=== PATIENT | male | born 1985 | race African-American/Black ===

== ENCOUNTER 2017-06-14 06:13 | Emergency (ER) | payer BC, OTHER ==
[2017-06-14 06:59] LABS: #Eosinphils 0.1 thou/uL (0.0-0.7); #Monocytes 0.6 thou/uL (0.11-0.59); #Neutrophils 4.1 thou/uL (1.40-6.50); %Basophils 0.7 % (0.0-1.0); %Eosinophils 2.2 % (0.0-10.0); %Lymphocytes 28.9 % (21.0-51.0); %Monocytes 8.2 % (0.0-10.0); %Neutrophils 59.9 % (42.0-75.0); Hemoglobin 14.7 g/dL (14.0-18.0); Mean Corpuscular HGB CONC 32.8 g/dL (32.0-36.0); Mean Corpuscular Volume 85.2 fl (80.0-94.0); Mean Platelet Volume 8.5 fL (7.4-10.4); Platelet Count 262 thou/uL (130-400); RBC Distribution Width 11.8 % (11.5-14.5); Red Blood Cell (RBC) Count 5.27 mill/uL (4.70-6.10); White Blood Cell (WBC) Count 6.8 thou/uL (4.8-10.8)
[2017-06-14] MEDS ORDERED: Ondansetron HCl/PF 4 MG/2 ML Vial ONE (07:01)
[2017-06-14 07:20] LABS: Anion Gap 11 mmol/L (10-20); BUN (Urea Nitrogen) 13 mg/dL (8.9-20.6); Calc. Creatinine Clearance 0 mL/min (70-130); Calcium 9.9 mg/dL (7.8-10.44); Carbon Dioxide 29 mmol/L (22-29); Chloride 103 mmol/L (98-107); Estimated GFR-MDRD Greater than 90; Glucose 116 mg/dL (70-105); Potassium 4.4 mmol/L (3.5-5.1); Sodium 139 mmol/L (136-145)
== END 2017-06-14 07:40 | disposition home or self-care (01) ==
LOC: ERS 06:13
DX: R11.2 Nausea with vomiting, unspecified (principal)
CPT/HCPCS: 80048; 85025; 96361; 96374; J2405

== ENCOUNTER 2018-09-09 14:31 | Outpatient (CLI) | payer BC ==
--- NOTE | 2018-09-09 15:31 | ULT ---
TESTICULAR ULTRASOUND WITH GRAYSCALE COLOR-FLOW AND SPECTRAL DOPPLER IMAGING: HISTORY: Abnormal semen, infertility FINDINGS: The right testis measures 4 x 1.7 x 3.2 cm in the left testis measures 3.5 x 2.1 x 2.4 cm. No testicu lar mass or microlithiasis is seen on either side. Symmetric flow is demonstrated to both testes and epididymides. The right epididymis is normal. There is a 3 mm cyst in the left epididymal head. IMPRESSION: 1. No evidence of testicular masses or torsion. 2. Small left epididymal head cyst/spermatocele.
== END 2018-09-09 14:32 | disposition home or self-care (01) ==
LOC: BICULT 14:31
PROVIDERS: ATTEND Urology
DX: N46.9 Male infertility, unspecified (principal); R86.9 Unspecified abnormal finding in specimens from male genital organs
CPT/HCPCS: 76870; 93976

== ENCOUNTER 2018-11-02 17:32 | Emergency (ER) | payer BC ==
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
[2018-11-02] MEDS ORDERED: Ketorolac Tromethamine 30 MG/ML VIAL ONE (18:45)
== END 2018-11-02 19:03 | disposition home or self-care (01) ==
LOC: ERS 17:32
DX: M25.472 Effusion, left ankle (principal); X50.1XXA Overexertion from prolonged static or awkward postures, initial encounter
CPT/HCPCS: 29515; 96372; J1885

== ENCOUNTER 2018-12-03 01:41 | Emergency (ER) | payer BC ==
[2018-12-03] MEDS ORDERED: Adacel (T-DAP) 0.5 ML SYRINGE ONE (01:53)
[2018-12-03] MEDS ORDERED: Morphine 4 MG/ML VIAL ONE (01:53)
[2018-12-03] MEDS ORDERED: Ondansetron PF 4 MG/2 ML Vial ONE (01:53)
[2018-12-03] MEDS ORDERED: Lidocaine 1% (PF) 30 ML VIAL ONE (02:45)
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
[2018-12-03] MEDS ORDERED: ISOVUE-370 76%-LOCM 1 ML ONE (16:41)
== END 2018-12-03 04:30 | disposition home or self-care (01) ==
LOC: ERS 01:41
DX: S11.91XA Laceration without foreign body of unspecified part of neck, initial encounter (principal); S51.811A Laceration without foreign body of right forearm, initial encounter; S61.511A Laceration without foreign body of right wrist, initial encounter; Z23 Encounter for immunization; V86.99XA Unspecified occupant of other special all-terrain or other off-road motor vehicle injured in nontraffic accident, initial encounter
CPT/HCPCS: 12005; 70498; 90471; 90715; 96374; 96375; J2001; J2270; J2405; Q9966

== ENCOUNTER 2023-11-02 16:00 | Outpatient (CLI) | payer BC | END 2023-11-02 16:01 | disposition home or self-care (01) | LOC: SLEEPLAB 16:00 | PROVIDERS: ATTEND Family Medicine | DX: G47.33 Obstructive sleep apnea (adult) (pediatric) (principal); G47.9 Sleep disorder, unspecified; R53.83 Other fatigue; E66.9 Obesity, unspecified; R06.83 Snoring; G47.00 Insomnia, unspecified; Z68.41 Body mass index [BMI] 40.0-44.9, adult | CPT/HCPCS: 95800 ==